=== PATIENT | male | born 1985 | race Caucasian/White ===

== ENCOUNTER 2020-05-12 11:48 | Emergency (ER) | payer OTHER ==
[~2020-05-12] VITALS: Ht 188 cm; Wt 98.4 kg
--- NOTE | 2020-05-14 13:44 | EKG ---
[facility] [address] [facility] [place] [address] Signed Normal sinus rhythm Normal ECG No previous ECGs available Confirmed by RADHIKA GAINES MD ([id number]) on 05/14/2020 1:44:44 PM Electronically Signed By: RADHIKA GAINES MD 05/14/20 1344 PATIENT NAME: GERALDINE BEACH Electrocardiogram DATE OF : 81 PHYSICIAN: RADHIKA GAINES MD REPORT #: [id number] REPORT IS CONFIDENTIAL AND NOT TO BE RELEASED WITHOUT AUTHORIZATION
== END 2020-05-12 14:10 | disposition home or self-care (01) ==
LOC: ED 11:48
DX: I49.3 Ventricular premature depolarization (principal)
CPT/HCPCS: 80053; 83735; 84443; 84484; 85025; 93005; 93010; 99285-25